=== PATIENT | female | born 2000 | race Caucasian/White ===

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

== ENCOUNTER 2020-11-01 13:40 | Emergency (ER) | payer SELFPAY ==
[~2020-11-01] VITALS: Ht 149.8 cm; Wt 43.1 kg
[~2020-11-01 13:40] MED LIST changes: +NORG1TAB14 PO
--- NOTE | 2020-11-01 14:07 | ED Lower Extremity ---
General Chief Complaint: Lower Extremity Stated Complaint: L FOOT INJ Nursing Triage Note: PT STATES SHE WAS RUNNING UP THE STAIRS AND FELT HER FOOT TWIST, STATES PAIN ON THE LEFT LATERAL SIDE OF HER FOOT. Nursing Sepsis Screen: No Definite Risk Source: patient Exam Limitations: no limitations History of Present Illness Date Seen by Provider: Nov 01, 2020 Time Seen by Provider: 14:06 Initial Comments To ER with pain over the fifth metatarsal head after she was running up her stairs just prior to arrival. Her foot slipped. No ankle pain. Onset: just prior to arrival Severity: moderate Pain/Injury Location: left foot Method of Injury: fell, twisted Modifying Factors: Worse With Movement Allergies and Home Medications Allergies Coded Allergies: NKANo Known Allergies (Verified Allergy, Unknown, 12/14/06) Home Medications Hydrocodone/Acetaminophen 1 Each Tablet, 1 TAB PO Q4H PRN for PAIN-MODERATE (5- 7) Prescribed by: FRANCESCO BAILON on 11/01/20 1429 Patient Home Medication List Home Medication List Reviewed: Yes Review of Systems Constitutional: see HPI EENTM: see HPI Respiratory: no symptoms reported Cardiovascular: no symptoms reported Genitourinary: no symptoms reported Musculoskeletal: see HPI Skin: no symptoms reported Psychiatric/Neurological: No Symptoms Reported Past Dahwmtj-Bahnya-Wiyram Hx Patient Social History Alcohol Use: Occasionally Uses Smoking Status: Former Smoker Type Used: Cigarettes Recent Infectious Disease Expo: No Recent Hopitalizations: No Immunizations Up To Date Tetanus Booster (TDap): Less than 5yrs PED Vaccines UTD: Yes Seasonal Allergies Seasonal Allergies: No Past Medical History Surgeries: Yes (tissue removal behind ear, wart removal from head) Respiratory: No Cardiac: No Neurological: No Reproductive Disorders: No Sexually Transmitted Disease: No Genitourinary: No Gastrointestinal: No Musculoskeletal: No Endocrine: No Cancer: No Psychosocial: Yes ADD/ADHD, Depression Integumentary: No Blood Disorders: No Family Medical History No Pertinent Family Hx Physical Exam Vital Signs Vital Signs - First Documented 11/01/20 14:01 Temp 36.7 Pulse 79 Resp 18 B/P (MAP) 120/68 (85) Pulse Ox 99 Capillary Refill : Less Than 3 Seconds Height, Weight, BMI Height: 4'11.00" Weight: 90lbs. oz. 40.392283uf; 19.00 BMI Method:Stated General Appearance: WD/WN, no apparent distress Respiratory: no respiratory distress, no accessory muscle use Hips: bilateral hip non-tender, bilateral hip normal inspection, bilateral hip normal range of motion Legs: bilateral leg non-tender, bilateral leg normal inspection, bilateral leg normal range of motion Knees: bilateral knee non-tender, bilateral knee normal inspection, bilateral knee normal range of motion Ankles: bilateral ankle non-tender, bilateral ankle normal inspection, nabil ateral ankle normal range of motion Feet: left foot other (There is some ecchymosis laterally over the proximal fifth metatarsal. Tenderness to palpation in this area. There is no overt swelling. The lateral malleolus and medial malleolus are normal in appearance and nontender to palpation.) Neurologic/Psychiatric: alert, normal mood/affect, oriented x 3 Skin: normal color, warm/dry Progress/Results/Core Measures Results/Orders My Orders Orders - FRANCESCO BAILON APRN Foot, Left, 3 Views (11/01/20 14:04) Hydrocodone/Apap 5/325 Tablet (Lortab 5 (11/01/20 14:45) Vital Signs/I&O 11/01/20 14:01 Temp 36.7 Pulse 79 Resp 18 B/P (MAP) 120/68 (85) Pulse Ox 99 Blood Pressure Mean: 85 Diagnostic Imaging Diagonstic Imaging: Xray Comments NAME: [facility] REC#: [id number] PT STATUS: REG ER : 2000 PHYSICIAN: FRANCESCO BAILON APRN ADMIT DATE: 11/01/20/ER Draft Date of Exam:11/01/20 FOOT, LEFT, 3 VIEWS EXAM: Left foot radiograph. EXAM DATE: 11/01/2020. COMPARISON: None. HISTORY: Injury to the left foot. TECHNIQUE: Three views of the left foot. FINDINGS: There is a linear radiolucency along the lateral aspect of the proximal left fifth metatarsal, best seen on the AP and oblique views. No significant displacement or angulation. There is no other acute fracture, dislocation, or destructive osseous process. Joint spaces are normal. The soft tissues demonstrate mild swelling in the midfoot. IMPRESSION: 1. Likely nondisplaced fracture of the proximal right fifth metatarsal. Dictated on workstation # [id number] Dict: 11/01/20 1427 Trans: 11/01/20 1436 [id number] Interpreted by: BJ WAHL DO Electronically signed by: Departure Communication (Admissions) Given a walking boot here. Follow up with ortho. Impression Primary Impression: Metatarsal fracture left foot Disposition: HOME, SELF-CARE Condition: Stable Departure-Patient Inst. Decision time for Depature: 14:27 Referrals: JEFRY GRACE MD, CHAD C MD (PCP/Family) Primary Care Physician DEMETRIA KUMAR MD Patient Instructions: Foot Fracture (DC) Add. Discharge Instructions: Walking boot when you are up and about. You can take it off when you are at rest or in bed. Call tomorrow for an appointment with an orthopedist for further evaluation. Pain medication as directed. All discharge instructions reviewed with patient and/or family. Voiced understanding. Scripts Hydrocodone/Acetaminophen (Hydrocodone-Acetamin 5-325 mg) 1 Each Tablet 1 TAB PO Q4H PRN for PAIN-MODERATE (5-7), #14 TAB Prov: FRANCESCO BAILON APRN 11/01/20 Work/School Note: Work Release Form Date Seen in the Emergency Department: Nov 01, 2020 Return to Work: Nov 03, 2020 Other Restrictions Listed Below: Walking boot until released. ALlow foot to be elevated for 30 minutes as Copy Copies To 1: LIBORIO QUINTANA MD, PETER J APRN Nov 01, 2020 14:07
[2020-11-01] MEDS ORDERED: ACHD5005 PO (14:29)
--- NOTE | 2020-11-01 14:36 | Diagnostic Imaging Report ---
EXAM: Left foot radiograph. EXAM DATE: 11/01/2020. COMPARISON: None. HISTORY: Injury to the left foot. TECHNIQUE: Three views of the left foot. FINDINGS: There is a linear radiolucency along the lateral aspect of the proximal left fifth metatarsal, best seen on the AP and oblique views. No significant displacement or angulation. There is no other acute fracture, dislocation, or destructive osseous process. Joint spaces are normal. The soft tissues demonstrate mild swelling in the midfoot. IMPRESSION: 1. Nondisplaced fracture of the proximal right fifth metatarsal. Dictated by: Dictated on workstation # [id number]
[2020-11-01] MEDS ORDERED: HYDROcodone/APAP 5 MG/325 MG (LORTAB) TAB PO ONE (14:45)
[2020-11-01 14:47] VITALS: BP 120/68
== END 2020-11-01 14:47 | disposition home or self-care (01) ==
LOC: EDUNIT# 13:40 → ER 13:41
DX: S92.354A Nondisplaced fracture of fifth metatarsal bone, right foot, initial encounter for closed fracture (principal); Z87.891 Personal history of nicotine dependence; W18.43XA Slipping, tripping and stumbling without falling due to stepping from one level to another, initial encounter
CPT/HCPCS: 73630

== ENCOUNTER 2021-11-18 07:05 | Emergency (ER) | payer SELFPAY ==
[~2021-11-18] VITALS: Ht 149.8 cm; Wt 43.0 kg
[~2021-11-18 07:05] MED LIST changes: +ACHD5005 PO
--- NOTE | 2021-11-18 07:52 | ED EENT ---
History of Present Illness General Chief Complaint: Foreign Body Stated Complaint: TISSUE IN R EAR Source: patient Exam Limitations: no limitations History of Present Illness Date Seen by Provider: Nov 18, 2021 Time Seen by Provider: 07:26 Initial Comments This 21-year-old young lady presents to the emergency room with tissue stuck in her right ear canal. She was staying the night in a hotel with her boyfriend last night. He was snoring loudly so she inserted tissue into her ears as earplugs. She is now unable to get the tissue out of her right ear. She is presently . Allergies and Home Medications Allergies Coded Allergies: NKANo Known Allergies (Verified Allergy, Unknown, 12/14/06) Patient Home Medication List Home Medication List Reviewed: Yes Hydrocodone/Acetaminophen (Hydrocodone-Acetamin 5-325 mg) 1 Each Tablet, 1 TAB PO Q4H PRN for PAIN-MODERATE (5-7) Prescribed by: FRANCESCO BAILON on 11/01/20 5004 Review of Systems Review of Systems Constitutional: no symptoms reported Ears: See HPI Past Qnxyoej-Czjjqc-Mvqoff Hx Patient Social History Tobacco Use?: No Smoking Status: Never a Smoker Use of E-Cig and/or Vaping dev: No Substance use?: No Alcohol Use?: No Pt feels they are or have been: No Immunizations Up To Date Tetanus Booster (TDap): Less than 5yrs PED Vaccines UTD: Yes Seasonal Allergies Seasonal Allergies: No Past Medical History Surgeries: Yes (tissue removal behind ear, wart removal from head) Respiratory: No Cardiac: No Neurological: No : Yes Reproductive Disorders: No Sexually Transmitted Disease: No Genitourinary: No Gastrointestinal: No Musculoskeletal: No Endocrine: No HEENT: No Cancer: No Psychosocial: Yes ADD/ADHD, Depression Integumentary: No Blood Disorders: No Family Medical History No Pertinent Family Hx Physical Exam Vital Signs Vital Signs - First Documented 11/18/21 11/18/21 07:15 07:55 Temp 35.6 Pulse 66 Resp 14 B/P (MAP) 98/61 (73) Pulse Ox 99 O2 Delivery Room Air Height, Weight, BMI Height: 4'11.00" Weight: 90lbs. oz. 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 Exam was normal after removal. See discharge instructions. Departure Impression Primary Impression: Foreign body in ear Qualified Codes: T16.1XXA - Foreign body in right ear, initial encounter Disposition: HOME, SELF-CARE Condition: Improved Departure-Patient Inst. Decision time for Depature: 07:40 Referrals: NO,LOCAL PHYSICIAN (PCP/Family) Primary Care Physician Patient Instructions: Foreign Body in Ear, Child Add. Discharge Instructions: Do not place any objects in the ear as earplugs except earplugs specifically designed for that purpose. In general, do not use any fibers product such as tissue that could disintegrate in any orifice such as the nose or ears. These products can disintegrate into many pieces and be very difficult to remove. Return to care if you have any problems with your ear. All discharge instructions reviewed with patient and/or family. Voiced understa nding. EVA MAYA MD Nov 18, 2021 07:52
[2021-11-18 07:55] VITALS: BP 98/61
== END 2021-11-18 07:55 | disposition home or self-care (01) ==
LOC: EDUNIT# 07:05 → ER 07:08
DX: O9A.219 Injury, poisoning and certain other consequences of external causes complicating pregnancy, unspecified trimester (principal); S00.451A Superficial foreign body of right ear, initial encounter; Z3A.00 Weeks of gestation of pregnancy not specified; W45.8XXA Other foreign body or object entering through skin, initial encounter
CPT/HCPCS: 99282

== ENCOUNTER → 2021-12-10 | Outpatient (CLI) | payer MEDICAID, OTHER ==
--- NOTE | 2021-12-10 16:08 | Diagnostic Imaging Report ---
INDICATION: Check dates. EXAMINATION: Ultrasound OB less than 14 weeks, 12/10/2021. FINDINGS: Uterus is 9.9 cm in length. There is a single live intrauterine gestation currently measuring 11 weeks 3 days with cardiac activity of approximately 155 bpm. Estimated date of delivery is 06/28/2022. The maternal ovaries not visualized. IMPRESSION: Single live intrauterine gestation 11 weeks 3 days by today's sonogram. Dictated by: Dictated on workstation # [id number]
== END ==
LOC: RAD 13:00
PROVIDERS: ATTEND Family Medicine
DX: Z34.91 Encounter for supervision of normal pregnancy, unspecified, first trimester (principal); Z3A.11 11 weeks gestation of pregnancy
CPT/HCPCS: 76801

== ENCOUNTER 2022-01-24 15:30 | Emergency (ER) | payer MEDICAID ==
[~2022-01-24] VITALS: Ht 150 cm; Wt 41.3 kg
[2022-01-24 16:20] VITALS: BP 117/55
--- NOTE | 2022-01-24 16:31 | ED Cough/URI ---
General Stated Complaint: SORE THROAT, CONGESTION, VOMITING Source: patient Exam Limitations: no limitations History of Present Illness Date Seen by Provider: Jan 24, 2022 Time Seen by Provider: 16:19 Initial Comments 21-year-old female who is 18 weeks presents for chills, body aches, sore throat headache and runny nose. She also has a cough. No real shortness of breath. No chest pain. No abdominal symptoms. No vaginal bleeding or leakage of fluids. Allergies and Home Medications Allergies Coded Allergies: NKANo Known Allergies (Verified Allergy, Unknown, 12/14/06) Patient Home Medication List Home Medication List Reviewed: Yes Hydrocodone/Acetaminophen (Hydrocodone-Acetamin 5-325 mg) 1 Each Tablet, 1 TAB PO Q4H PRN for PAIN-MODERATE (5-7) Prescribed by: FRANCESCO BAILON on 11/01/20 1429 Review of Systems Review of Systems Constitutional: chills EENTM: nose congestion, throat pain Respiratory: cough Cardiovascular: no symptoms reported Gastrointestinal: no symptoms reported Genitourinary: no symptoms reported Musculoskeletal: no symptoms reported Skin: no symptoms reported Psychiatric/Neurological: No Symptoms Reported Hematologic/Lymphatic: No Symptoms Reported Past Ibyxmmv-Bokpmb-Bxummf Hx Patient Social History Tobacco Use?: No Use of E-Cig and/or Vaping dev: No Substance use?: No Alcohol Use?: No Pt feels they are or have been: No Immunizations Up To Date Tetanus Booster (TDap): Less than 5yrs PED Vaccines UTD: Yes Seasonal Allergies Seasonal Allergies: No Past Medical History Surgeries: Yes (tissue removal behind ear, wart removal from head) Respiratory: No Cardiac: No Neurological: No Reproductive Disorders: No Sexually Transmitted Disease: No Genitourinary: No Gastrointestinal: No Musculoskeletal: No Endocrine: No HEENT: No Cancer: No Psychosocial: Yes ADD/ADHD, Depression Integumentary: No Blood Disorders: No Family Medical History Reviewed Nursing Family Hx No Pertinent Family Hx Physical Exam Vital Signs - First Documented 01/24/22 16:20 Temp 36.7 Pulse 88 Resp 16 B/P (MAP) 117/55 (75) Pulse Ox 99 O2 Delivery Room Air Capillary Refill : Height: 4'11.00" Weight: 90lbs. oz. 40.499262wo; 19.00 BMI Method:Stated General Appearance: WD/WN, no apparent distress HEENT: PERRL/EOMI, normal ENT inspection, TMs normal, pharynx normal Neck: non-tender, full range of motion, supple, normal inspection Respiratory: chest non-tender, lungs clear, normal breath sounds, no respiratory distress, no accessory muscle use Cardiovascular: regular rate, rhythm, no edema, no gallop, no JVD, no murmur Gastrointestinal: normal bowel sounds, non tender, soft, no organomegaly, no pulsatile mass Extremities: normal range of motion, non-tender, normal inspection, no pedal edema, no calf tenderness Neurologic/Psychiatric: alert, normal mood/affect, oriented x 3 Skin: normal color, warm/dry Progress/Results/Core Measures Suspected Sepsis SIRS Temperature: Pulse: Respiratory Rate: Blood Pressure / Mean: Results/Orders Lab Results Laboratory Tests Test 01/24/22 16:28 Range/Units SARS-CoV-2 RNA (RT-PCR) Not Detected Not Detecte Group A Streptococcus Screen NEGATIVE NEGATIVE Micro Results Microbiology 01/24/22 Throat Culture - Final, Complete No Beta Strep isolated My Orders Orders - LUIS A CHAVEZ DO Covid 19 Inhouse Test (01/24/22 16:28) Rapid Strep A Screen (01/24/22 16:28) Vital Signs/I&O 01/24/22 01/24/22 16:20 17:19 Temp 36.7 Pulse 88 82 Resp 16 18 B/P (MAP) 117/55 (75) Pulse Ox 99 100 O2 Delivery Room Air Room Air Capillary Refill : Departure Communication (Admissions) Patient is hemodynamically stable. No indication imaging related issues. Discharged in stable condition with close follow-up. The COVID test is negative, however I think this is likely still COVID, just tested too early. Impression Primary Impression: Viral illness Disposition: HOME, SELF-CARE Condition: Stable Departure-Patient Inst. Referrals: NO,LOCAL PHYSICIAN (PCP/Family) Primary Care Physician Patient Instructions: COVID-19 Home Care/Discharge Add. Discharge Instructions: Increase your fluids, rest. Use Tylenol as needed for body aches fevers. Return to the emergency department for any severe concerns. LUIS A CHAVEZ DO Jan 24, 2022 16:31
== END 2022-01-24 17:19 | disposition home or self-care (01) ==
LOC: EDUNIT# 15:30 → ER 15:32
DX: O98.512 Other viral diseases complicating pregnancy, second trimester (principal); B34.9 Viral infection, unspecified; Z28.310 Unvaccinated for COVID-19; Z20.822 Contact with and (suspected) exposure to COVID-19; Z3A.18 18 weeks gestation of pregnancy
CPT/HCPCS: 87430; 87636; 99283

== ENCOUNTER 2022-01-25 14:55 | Emergency (ER) | payer MEDICAID ==
[~2022-01-25] VITALS: Ht 149 cm; Wt 41.2 kg
[2022-01-25] MEDS ORDERED: NS IV 1000 ML 1,000 ML IV STA (15:41)
[2022-01-25] MEDS ORDERED: ONDANSETRON 4 MG/2 ML (SDV) Z0FRAN IVP ONE (15:45)
--- NOTE | 2022-01-25 15:50 | ED Abdominal Pain ---
General Chief Complaint: Abdominal/GI Problems Stated Complaint: VOMITING Nursing Triage Note: Pt presents with persistent N/V. She was evaluated yesterday in this ER for similar symptoms. She reports being approx 4 mo . Unable to keep broth down this morning. Has been taking a prescribed nausea medication, can not remember the name. (LUCY SNEED APRN) History of Present Illness Date Seen by Provider: Jan 25, 2022 Time Seen by Provider: 15:40 Initial Comments Patient states that she was seen here yesterday for similar symptoms and was told to come back here if symptoms got worse. States that today she has been unable to keep anything down. Denies fever or recent sick contacts. Was tested for COVID yesterday and negative at that time. Is currently 4 months . 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 Denies diarrhea. Has not vomited since this morning. Timing/Duration: 1-2 Days Severity/Quality: Moderate Location: Generalized Abdomen Radiation: No Radiation Activities at Onset: None Modifying Factors: Worsens With Eating, Worsens With Lying down, Worsens With Movement; Improves With Resting; Worsens With Urinating; Improves With Vomiting Associated Symptoms: No Diaphoresis, No Fever/Chills; Fatigue, Nausea/Vomiting; No Weakness (LUCY SNEED APRN) Allergies and Home Medications Allergies Coded Allergies: NKANo Known Allergies (Verified Allergy, Unknown, 12/14/06) Patient Home Medication List Home Medication List Reviewed: Yes (LUCY SNEED APRN) Hydrocodone/Acetaminophen (Hydrocodone-Acetamin 5-325 mg) 1 Each Tablet, 1 TAB PO Q4H PRN for PAIN-MODERATE (5-7) Prescribed by: FRANCESCO BAILON on 11/01/20 1429 Review of Systems Review of Systems Constitutional: see HPI; No chills, No dizziness, No fever; malaise; No weakness EENTM: No Symptoms Reported Respiratory: Denies Cough, Denies Shortness of Air Cardiovascular: Denies Chest Pain, Denies Irregular Heart Rate, Denies Li ghtheadedness Gastrointestinal: Abdominal Pain; Denies Diarrhea; Nausea, Poor Appetite, Vomiting Genitourinary: Denies Burning, Denies Frequency Musculoskeletal: No back pain, No joint swelling Skin: No pruritus, No rash (LUCY SNEED APRN) All Other Systems Reviewed Negative Unless Noted: Yes (LUCY SNEED APRN) Past Fibkadk-Kwolie-Qkxnzi Hx Patient Social History Tobacco Use?: No Substance use?: No Alcohol Use?: No (LUCY SNEED APRN) Immunizations Up To Date Tetanus Booster (TDap): Less than 5yrs PED Vaccines UTD: Yes (LUCY SNEED APRN) Seasonal Allergies Seasonal Allergies: No (LUCY SNEED APRN) Past Medical History Surgeries: Yes (tissue removal behind ear, wart removal from head) Respiratory: No Cardiac: No Neurological: No Expected Date of Delivery: Jun 28, 2022 Reproductive Disorders: No Sexually Transmitted Disease: No Genitourinary: No Gastrointestinal: No Musculoskeletal: No Endocrine: No HEENT: No Cancer: No Psychosocial: Yes ADD/ADHD, Depression Integumentary: No Blood Disorders: No (LUCY SNEED APRN) Family Medical History Reviewed Nursing Family Hx (LUCY SNEED APRN) No Pertinent Family Hx (LUCY SNEED APRN) Physical Exam Vital Signs Vital Signs - First Documented 01/25/22 15:26 Temp 36.9 Pulse 91 Resp 18 B/P (MAP) 96/62 (73) (MARIANN LUNA APRN) Vital Signs Capillary Refill : (LUCY SNEED APRN) Height/Weight/BMI Height: 4'11.00" Weight: 90lbs. oz. 40.352958vj; 18.00 BMI Method:Stated General Appearance: WD/WN, no apparent distress HEENT: PERRL/EOMI, pharynx normal; No scleral icterus (L), No pale conjunctivae (R), No pale conjunctivae (L) Neck: non-tender, full range of motion, supple, normal inspection Respiratory: lungs clear, normal breath sounds, no respiratory distress Cardiovascular: regular rate, rhythm, no edema Gastrointestinal: normal bowel sounds, non tender, soft Extremities: normal range of motion, non-tender Back: normal inspection, no CVA tenderness Neurologic/Psychiatric: alert, normal mood/affect, oriented x 3 Skin: normal color, warm/dry Lymphatic: no adenopathy (LUCY SNEED APRN) Progress/Results/Core Measures Results/Orders Lab Results Laboratory Tests Test 01/25/22 15:21 01/25/22 16:07 Range/Units Influenza Type A (RT-PCR) Not Detected Not Detecte Influenza Type B (RT-PCR) Not Detected Not Detecte White Blood Count 8.9 4.3-11.0 10^3/uL Red Blood Count 3.40 L 3.80-5.11 10^6/uL Hemoglobin 10.9 L 11.5-16.0 g/dL Hematocrit 32 L 35-52 % Mean Corpuscular Volume 93 80-99 fL Mean Corpuscular Hemoglobin 32 25-34 pg Mean Corpuscular Hemoglobin Concent 35 32-36 g/dL Red Cell Distribution Width 11.9 10.0-14.5 % Platelet Count 191 130-400 10^3/uL Mean Platelet Volume 9.1 9.0-12.2 fL Immature Granulocyte % (Auto) 1 % Neutrophils (%) (Auto) 87 H 42-75 % Lymphocytes (%) (Auto) 6 L 12-44 % Monocytes (%) (Auto) 5 0-12 % Eosinophils (%) (Auto) 0 0-10 % Basophils (%) (Auto) 0 0-10 % Neutrophils # (Auto) 7.8 1.8-7.8 10^3/uL Lymphocytes # (Auto) 0.6 L 1.0-4.0 10^3/uL Monocytes # (Auto) 0.5 0.0-1.0 10^3/uL Eosinophils # (Auto) 0.0 0.0-0.3 10^3/uL Basophils # (Auto) 0.0 0.0-0.1 10^3/uL Immature Granulocyte # (Auto) 0.1 0.0-0.1 10^3/uL Neutrophils % (Manual) 87 % Lymphocytes % (Manual) 6 % Monocytes % (Manual) 6 % Eosinophils % (Manual) 1 % Blood Morphology Comment NORMAL Sodium Level 134 L 135-145 MMOL/L Potassium Level 3.8 3.6-5.0 MMOL/L Chloride Level 107 98-107 MMOL/L Carbon Dioxide Level 16 L 21-32 MMOL/L Anion Gap 11 5-14 MMOL/L Blood Urea Nitrogen 6 L 7-18 MG/DL Creatinine 0.55 L 0.60-1.30 MG/DL Estimat Glomerular Filtration Rate 134 BUN/Creatinine Ratio 11 Glucose Level 64 L 70-105 MG/DL Calcium Level 9.0 8.5-10.1 MG/DL Corrected Calcium 9.0 8.5-10.1 MG/DL Total Bilirubin 0.3 0.1-1.0 MG/DL Aspartate Amino Transf (AST/SGOT) 35 H 5-34 U/L Alanine Aminotransferase (ALT/SGPT) 29 0-55 U/L Alkaline Phosphatase 43 40-136 U/L Total Protein 6.8 6.4-8.2 GM/DL Albumin 4.0 3.2-4.5 GM/DL Lipase 16 8-78 U/L (MARIANN LUNA APRN) My Orders Orders - MARIANN LUNA APRN Influenza A And B By Pcr (01/25/22 15:00) (MARIANN LUNA APRN) Medications Given in ED Current Medications Medications Dose Ordered Sig/Heeln Route Start Time Stop Time Status Last Admin Dose Admin Ondansetron HCl 4 mg ONCE ONCE IVP 01/25/22 15:45 01/25/22 15:46 DC 01/25/22 16:08 4 MG (MARIANN LUNA APRN) Vital Signs/I&O 01/25/22 15:26 Temp 36.9 Pulse 91 Resp 18 B/P (MAP) 96/62 (73) (MARIANN LUNA APRN) Blood Pressure Mean: 73 Progress Progress Note #1: Progress Note Discussed with patient that she will have influenza testing done. Will go ahead and check some basic labs along with giving liter of saline for hydration. Will also treat with nausea medications. FHTs will be done. Progress Note #2: Time: 15:57 Progress Note Influenza testing is negative at this time. Fluids and additional labs are pending at this time. Progress Note #3: Time: 16:50 Progress Note Discussed labs with patient at this time. She reports that she is feeling a lot better at this time and reports that she is hungry. Has nausea medication at home. Has an appointment already scheduled with OB in two days. Discussed reasons to return to the ER with patient. No emesis was appreciated while she was here in the department. Symptoms likely viral in origin or related. Of note, AST was barely elevated at 35. History of Tylenol overdose in the past with liver enzymes in the 8000s per patient report. C02 was low in addition but was likely improved with normal saline. She was not tachycardic while she was here in the department. Instructed to keep appointment with OB as already scheduled. (LUCY NSEED APRN) Departure Impression Primary Impression: Nausea and vomiting Qualified Codes: R11.2 - Nausea with vomiting, unspecified Additional Impression: Qualified Codes: Z34.90 - Encounter for supervision of normal , unspecified, unspecified trimester Disposition: HOME, SELF-CARE Condition: Stable Departure-Patient Inst. Decision time for Depature: 16:57 (LUCY SNEED APRN) Decision time for Depature: 17:16 (MARIANN LUNA APRN) Referrals: NO,LOCAL PHYSICIAN (PCP/Family) Primary Care Physician Patient Instructions: Nausea and Vomiting, Adult, - The Fourth Month Add. Discharge Instructions: All discharge instructions reviewed with patient and/or family. Voiced understanding. 1. Home and rest. 2. Push fluids. 3. Tylenol as needed for pain. 4. Follow up with PCP as needed. 5. Follow up with OB as already scheduled this week. 6. Toole diet and advance as tolerated. 7. Return here if worse or concerns. Work/School Note: Work Release Form Date Seen in the Emergency Department: Jan 25, 2022 Other Restrictions Listed Below: Was seen in ER on 01/24/22 and 01/25/22 for GI illness. LUCY SNEED APRN Jan 25, 2022 15:50 MARIANN LUNA APRN Jan 25, 2022 17:17
[2022-01-25 16:16] LABS: BASOPHILS % (AUTO) 0 % (0-10); EOSINOPHILS % (AUTO) 0 % (0-10); HEMATOCRIT 32 % (35-52); HEMOGLOBIN 10.9 g/dL (11.5-16.0); LYMPHOCYTES # (AUTO) 0.6 10^3/uL (1.0-4.0); LYMPHOCYTES % (AUTO) 6 % (12-44); MEAN CORPUSCULAR HEMOGLOBIN 32 pg (25-34); MEAN CORPUSCULAR HGB CONC 35 g/dL (32-36); MEAN CORPUSCULAR VOLUME 93 fL (80-99); MEAN PLATELET VOLUME 9.1 fL (9.0-12.2); MONOCYTES # (AUTO) 0.5 10^3/uL (0.0-1.0); MONOCYTES % (AUTO) 5 % (0-12); NEUTROPHILS # (AUTO) 7.8 10^3/uL (1.8-7.8); NEUTROPHILS % (AUTO) 87 % (42-75); PLATELET COUNT 191 10^3/uL (130-400); WHITE BLOOD COUNT 8.9 10^3/uL (4.3-11.0)
[2022-01-25 16:32] LABS: EOSINOPHILS % (MANUAL) 1 %; LYMPHOCYTES % (MANUAL) 6 %; MONOCYTES % (MANUAL) 6 %; NEUTROPHILS % (MANUAL) 87 %; RBC MORPH NORMAL
[2022-01-25 16:36] LABS: POTASSIUM 3.8 MMOL/L (3.6-5.0)
[2022-01-25 16:39] LABS: TOTAL PROTEIN 6.8 GM/DL (6.4-8.2)
[2022-01-25 16:40] LABS: BILIRUBIN,TOTAL 0.3 MG/DL (0.1-1.0)
[2022-01-25 16:42] LABS: CREATININE SERUM 0.55 MG/DL (0.60-1.30)
[2022-01-25 17:00] VITALS: BP 94/52
== END 2022-01-25 17:10 | disposition home or self-care (01) ==
LOC: EDUNIT# 14:55 → ER 14:57
DX: O21.9 Vomiting of pregnancy, unspecified (principal); Z28.310 Unvaccinated for COVID-19; Z3A.00 Weeks of gestation of pregnancy not specified
CPT/HCPCS: 36415; 80053; 81002; 83690; 85007; 85027; 87636

== ENCOUNTER → 2022-02-14 | Outpatient (CLI) | payer MEDICAID ==
--- NOTE | 2022-02-14 17:54 | Diagnostic Imaging Report ---
INDICATION: Routine anatomic survey. . TECHNIQUE: Multiple real-time grayscale images were obtained over the gravid uterus. COMPARISON: None Number: Single live Presentation: Cephalic Placenta: Posterior and low lying Amniotic Fluid: TAMIKA is 11.6 cm. Single largest vertical pocket is 3.4 cm. Heart Rate: 142 bpm BPD: 4.7 cm; consistent with 20 weeks and 2 days HC: 18.4 cm; consistent with 20 weeks and 6 days AC: 16.6 cm; consistent with 21 weeks and 5 days FL: 3.4 cm; consistent with 20 weeks and 5 days EGA from current exam: 21 weeks and 0 days gestation plus or minus 2 weeks LOUISA from current exam: 06/27/2022 CLINICAL DATES: Gestational age 20 weeks and 6 days, LOUISA 06/28/2022 EFW: 399 g +/- 58 grams (14 ounces); this is consistent with the 58th percentile FINDINGS: The anatomic survey is grossly unremarkable. The stomach, four-chamber heart, kidneys, bladder, three-vessel cord and the cord insertion are well seen. The spine and intracranial structures are grossly unremarkable. Maternal adnexa are unremarkable. Maternal ovaries are not well visualized due to position IMPRESSION: Single live intrauterine at approximately 21 weeks and 0 days, with an LOUISA of 06/27/2022. These are concordant with clinical dates. No gross abnormalities are seen at this time. Dictated by: Dictated on workstation # [id number]
== END ==
LOC: RAD 14:00
PROVIDERS: ATTEND Family Medicine
DX: Z36.9 Encounter for antenatal screening, unspecified (principal); Z3A.21 21 weeks gestation of pregnancy
CPT/HCPCS: 76805

== ENCOUNTER 2022-04-18 10:00 | Outpatient (CLI) | payer MEDICAID ==
[~2022-04-18] VITALS: Ht 149.9 cm; Wt 48.0 kg
[2022-04-18 10:30] VITALS: BP 118/56
== END 2022-04-18 11:24 ==
LOC: LAB 10:00
PROVIDERS: ATTEND Family Medicine
DX: Z67.91 Unspecified blood type, Rh negative (principal)

== ENCOUNTER 2022-06-21 18:11 | Inpatient (IN) | payer MEDICAID ==
[~2022-06-21] VITALS: Ht 152 cm; Wt 51.8 kg
[2022-06-21] VITALS (8 sets, daily range): BP systolic 122–135; BP diastolic 68–99
[2022-06-21] MEDS ORDERED: D5 LR IV SOLUTION 1,000 ML IV ONE (22:23)
[2022-06-21] MEDS: D5 LR IV SOLUTION 1,000 ML IV SCH (22:30)
[2022-06-21] MEDS ORDERED: MINERAL OIL 30 ML UDC TOP PRN (22:45)
[2022-06-21 22:49] LABS: BASOPHILS % (AUTO) 0 % (0-10); EOSINOPHILS # (AUTO) 0.1 10^3/uL (0.0-0.3); EOSINOPHILS % (AUTO) 1 % (0-10); HEMATOCRIT 37 % (35-52); HEMOGLOBIN 12.8 g/dL (11.5-16.0); LYMPHOCYTES % (AUTO) 15 % (12-44); MEAN CORPUSCULAR HEMOGLOBIN 32 pg (25-34); MEAN CORPUSCULAR HGB CONC 34 g/dL (32-36); MEAN CORPUSCULAR VOLUME 93 fL (80-99); MEAN PLATELET VOLUME 10.3 fL (9.0-12.2); MONOCYTES # (AUTO) 0.8 10^3/uL (0.0-1.0); MONOCYTES % (AUTO) 6 % (0-12); NEUTROPHILS # (AUTO) 10.4 10^3/uL (1.8-7.8); NEUTROPHILS % (AUTO) 77 % (42-75); PLATELET COUNT 268 10^3/uL (130-400); WHITE BLOOD COUNT 13.5 10^3/uL (4.3-11.0)
[2022-06-21] MEDS ORDERED: fentaNYL 2 mcg/ml BUPIVA 0.125 100 ML ONE (23:07)
[2022-06-21] MEDS ORDERED: fentaNYL INJ 100 MCG/2 ML AMP ONE ×2 (23:13→23:42)
[2022-06-21] MEDS ORDERED: BUPIVACAINE 0.25% 10 ML (SENSORCAINE) VIAL ONE ×2 (23:13→23:42)
[2022-06-22] VITALS (33 sets, daily range): BP systolic 103–160; BP diastolic 55–80
[2022-06-22] MEDS ORDERED: LACTATED RINGERS 1,000 ML IV ONE (00:15)
[2022-06-22] MEDS ORDERED: diphenhydrAMINE 50 MG/ML INJ (BENADRYL) IV PRN (00:15)
[2022-06-22] MEDS ORDERED: NALOXONE 0.4 MG/ML 1 ML (NARCAN) VIAL IV PRN ×2 (00:15→09:45)
[2022-06-22] MEDS ORDERED: CATHETER FLUSH 10 ML SYR IV PRN (00:15)
[2022-06-22] MEDS ORDERED: fentaNYL 2 mcg/ml BUPIVA 0.125 100 ML EPI SCH (00:15)
[2022-06-22] MEDS ORDERED: ONDANSETRON 4 MG/2 ML (SDV) Z0FRAN IV PRN (00:15)
[2022-06-22] MEDS: D5 LR IV SOLUTION 1,000 ML IV SCH (05:38)
[2022-06-22] MEDS ORDERED: CATHETER FLUSH 10 ML SYR IV SCH ×2 (06:00→14:00)
--- NOTE | 2022-06-22 07:28 | History & Physical-OB ---
OB - Chief Complaint & HPI Date/Time Date of Admission: Date of Admission: Jun 21, 2022 at 22:19 Date seen by a Provider: Jun 21, 2022 Time Seen by a Provider: 20:50 Chief Complaint/History OB-Reason for Admission/Chief: Onset of Labor Hx : 1 Hx Para: 0 Expected Date of Delivery: Jun 28, 2022 Gestational Age in Weeks: 39 Gestational Age in Days: 0 Admission Nurse Assessment Rev: Yes History of Labs GBS negative Allergies and Home Medications Allergies Coded Allergies: NKANo Known Allergies (Verified Allergy, Unknown, 12/14/06) Patient Home Medication List Home Medication List Reviewed: Yes Docusate Sodium (Docusate Sodium) 100 Mg Capsule, 100 MG PO BID Prescribed by: JAMIL BROWN on 06/23/22720 Hydrocodone/Acetaminophen (Hydrocodone-Acetamin 5-325 mg) 1 Each Tablet, 1 TAB PO Q4H PRN for PAIN-MODERATE (5-7) Prescribed by: FRANCESCO BAILON on 11/01/20 142 Ibuprofen (Ibu) 600 Mg Tablet, 600 MG PO Q6H Prescribed by: JAMIL BROWN on 06/23/22720 OB - History Hx of Present Care: Yes Ultrasounds: Normal mid trimester US Obstetrical Complications: None Medical Complications: None Obstetrical History Hx : 1 Hx Para: 0 Delivery History Hx Blood Disorders: No Patient Past Medical History no chronic medical problems Social History/Family History Alcohol Use: Denies Use Recreational Drug Use: No 2nd Hand Smoke Exposure: Yes Immunizations Influenza Vaccine Up-to-Date: No; Not Current Tetanus Booster (TDap): Less than 5yrs OB - Admission Exam Physical Exam Vitals: Vital Signs 06/22/22 05:30 Temp 37.0 Pulse 70 Resp 16 B/P (MAP) 107/72 (84) Pulse Ox 99 O2 Delivery Room Air HEENT: Moist Membranes Heart: Rhythm Normal Lungs: Clear Abdomen: Gravid Cervical Dilatation: 3cm Effacement: 75% Station: -3 Membranes: Intact Accelerations: Accelerations Present Short Term Variability: Present Pattern Changer And Repairer Variability: Average (6-25) Contractions on Admission: 6-10 Minutes Apart Intensity: Mild Labs Laboratory Tests Test 06/21/22 22:30 Range/Units White Blood Count 13.5 H 4.3-11.0 10^3/uL Red Blood Count 4.02 3.80-5.11 10^6/uL Hemoglobin 12.8 11.5-16.0 g/dL Hematocrit 37 35-52 % Mean Corpuscular Volume 93 80-99 fL Mean Corpuscular Hemoglobin 32 25-34 pg Mean Corpuscular Hemoglobin Concent 34 32-36 g/dL Red Cell Distribution Width 12.6 10.0-14.5 % Platelet Count 268 130-400 10^3/uL Mean Platelet Volume 10.3 9.0-12.2 fL Immature Granulocyte % (Auto) 1 % Neutrophils (%) (Auto) 77 H 42-75 % Lymphocytes (%) (Auto) 15 12-44 % Monocytes (%) (Auto) 6 0-12 % Eosinophils (%) (Auto) 1 0-10 % Basophils (%) (Auto) 0 0-10 % Neutrophils # (Auto) 10.4 H 1.8-7.8 10^3/uL Lymphocytes # (Auto) 2.0 1.0-4.0 10^3/uL Monocytes # (Auto) 0.8 0.0-1.0 10^3/uL Eosinophils # (Auto) 0.1 0.0-0.3 10^3/uL Basophils # (Auto) 0.0 0.0-0.1 10^3/uL Immature Granulocyte # (Auto) 0.2 H 0.0-0.1 10^3/uL OB - Assessment/Plan/Diagnosis Assessment Assessment: active labor (early on presentation) Admission Dx 1. IUP at term 39 weeks in early labor Admission Status: Inpatient Order (span 2 midnights) Reason for Inpatient Admission: L&D Plan Plan: Expectant Management Other Plan -patient desires epidural JAMIL BROWN MD Jun 22, 2022 07:28
[2022-06-22] MEDS ORDERED: MEPIVACAINE (CARBOCAINE) 2% 50 ML VIAL ONE (07:32)
[2022-06-22] MEDS ORDERED: MEPIVACAINE (CARBOCAINE) 2% 50 ML VIAL INJ ONE (08:00)
[2022-06-22] MEDS ORDERED: OXYTOCIN PRE-MIX DRIP 500 ML IV ONE (08:35)
--- NOTE | 2022-06-22 09:31 | OB Labor & Delivery Record ---
L&D History Date of Service Date of Service: Jun 22, 2022 History Expected Date of Delivery: Jun 28, 2022 Gestational Age in Weeks: 39 Hx : 1 Hx Para: 1 Complications Events: Routine care Operative Indications (Cesarea: N/A-Vaginal Delivery Intrapartal Events: None Other Complications GBS negative L&D Stage1 Stage One Onset of Labor - Date: Jun 21, 2022 Onset of Labor - Time: 22:10 Monitors and Tracing Monitor Mode: External Heart Rate: 130 Monitor Accelerations: Uniform Monitor Decelerations: None Station: -2 Mcc Variability: Average (6-10) Short Term Variability: Present Presentation: Vertex Vital Signs VS - Last 72 Hours, by Label 06/21/22 06/21/22 06/21/22 06/21/22 19:59 20:00 20:05 20:30 Temp 36.1 36.1 36.1 Pulse 80 75 80 72 Resp 18 18 18 B/P (MAP) 125/77 125/77 (93) Pulse Ox 98 100 98 99 O2 Delivery Room Air Room Air Room Air Room Air 06/21/22 06/21/22 06/21/22 06/21/22 21:00 21:30 22:00 22:30 Temp 36.5 Pulse 70 Resp 18 B/P (MAP) 135/82 (99) O2 Delivery Room Air Room Air Room Air Room Air 06/21/22 06/21/22 06/21/22 06/21/22 23:00 23:15 23:30 23:45 Pulse 80 72 86 B/P (MAP) 129/80 (96) 132/99 (110) Pulse Ox 96 100 98 O2 Delivery Room Air Room Air Room Air Room Air 06/21/22 06/21/22 06/22/22 06/22/22 23:54 23:56 00:00 00:04 Temp 36.5 Pulse 76 76 66 71 B/P (MAP) 122/68 (86) 129/73 (91) 122/60 (80) 124/74 (91) Pulse Ox 98 98 100 97 O2 Delivery Room Air Room Air Room Air 06/22/22 06/22/22 06/22/22 06/22/22 00:08 00:15 00:18 00:23 Pulse 77 90 72 100 B/P (MAP) 128/71 (90) 118/66 (83) 126/75 (92) 131/78 (95) Pulse Ox 98 98 99 100 O2 Delivery Room Air 06/22/22 06/22/22 06/22/22 06/22/22 00:30 00:35 00:38 00:45 Pulse 80 84 80 95 B/P (MAP) 124/77 (93) 119/75 (90) 121/73 (89) 127/62 (83) Pulse Ox 100 98 97 99 O2 Delivery Room Air Room Air 06/22/22 06/22/22 06/22/22 06/22/22 00:50 00:54 01:00 01:15 Temp 36.6 Pulse 82 83 84 77 Resp 16 16 B/P (MAP) 115/62 (79) 115/59 (77) 110/55 (73) 137/75 (95) Pulse Ox 99 99 98 98 O2 Delivery Room Air Room Air 06/22/22 06/22/22 06/22/22 06/22/22 01:30 02:00 02:30 03:30 Temp 36.8 Pulse 75 82 76 81 Resp 16 16 16 16 B/P (MAP) 123/57 (79) 116/70 (85) 118/78 (91) 123/80 (94) Pulse Ox 97 99 98 98 O2 Delivery Room Air Room Air Room Air Room Air 06/22/22 06/22/22 04:30 05:30 Temp 37.0 Pulse 88 70 Resp 16 16 B/P (MAP) 114/65 (81) 107/72 (84) Pulse Ox 98 99 O2 Delivery Room Air Room Air Signs of Distress by FHT Signs of Distress no Rupture of Membranes Spontaneous Ruture of Membrane: Yes Amniotic Membrane Rupture Time: 2210 Amniotic Membrane Fluid Desc.: Clear Vaginal Bleeding Description: None Induction/Anesthesia Epidural Cath Placement - Time: 2353 L&D Stage2 Stage Two Stage II Date: Jun 22, 2022 Stage II Time: 08:28 Monitors and Tracing Monitor Mode: External Heart Rate: 130 Monitor Accelerations: Uniform Monitor Decelerations: Early Microbiology Lab Manager Variability: Average (6-10) Short Term Variability: Present Position: Left Occiput Anterior Signs of Distress by FHT Signs of Distress no Cord Descript/Complications Cord Vessel Description: 3 Vessels Delivery Type Delivery Method: Spontaneous Vaginal Anterior Shoulder: Left Episiotomy/Perineal Laceration Laceraction(s)/Extensions: Yes Episiotomy Description: Midline Sutures Used: Vicryl Condition of Infant Delivery 1 minute Comment: 8 5 minute Comment: 9 Condition of Infant Condition of : Living Exam: No Observed Abnormalities Resuscitation Resuscitation: N/A - Spontaneous Resp L&D Stage3 Stage Three Stage III Date: Jun 22, 2022 Pictocin Pitocin ml/hr: 125 Placenta Delivery Placenta Delivery: Spontaneous Delivery Summary Summary Estimated blood loss (mL): 200 Condition of Delivery Examined: Cervix Examined Post Hemorrhage: No Intervention Required none JAMIL BROWN MD Jun 22, 2022 09:31
[2022-06-22] MEDS ORDERED: BENZOCAINE/MENTHOL (DERMOPLAST) 56 ML CAN TP PRN (09:45)
[2022-06-22] MEDS ORDERED: TETANUS,DIPTH,PERTUSS P/F (BOOSTRIX) 0.5 ML VIAL IM ONE (09:45)
[2022-06-22] MEDS ORDERED: MEASLES,MUMPS,RUBELLA 1 EA INJ SQ ONE (09:45)
[2022-06-22] MEDS ORDERED: OXYTOCIN PRE-MIX DRIP 500 ML IV SCH (09:45)
[2022-06-22] MEDS: WITCH HAZEL(TUCKS) 40 EA JAR TOP PRN (10:07)
[2022-06-22] MEDS: ACETAMINOPHEN 500 MG TAB (TYLENOL) PO SCH ×2 (11:17→18:25)
[2022-06-22] MEDS: IBUPROFEN 600 MG (MOTRIN) TAB PO SCH ×2 (11:17→18:25)
[2022-06-22] MEDS: DOCUSATE SODIUM 100 MG (COLACE) CAP PO SCH (21:29)
[2022-06-23 00:34] VITALS: BP 114/53
[2022-06-23] MEDS: IBUPROFEN 600 MG (MOTRIN) TAB PO SCH ×4 (00:34→12:13)
[2022-06-23] MEDS: ACETAMINOPHEN 500 MG TAB (TYLENOL) PO SCH ×3 (00:34→12:13)
[2022-06-23 03:50] VITALS: BP 107/62
[2022-06-23 07:06] LABS: BASOPHILS # (AUTO) 0.1 10^3/uL (0.0-0.1); BASOPHILS % (AUTO) 0 % (0-10); EOSINOPHILS # (AUTO) 0.2 10^3/uL (0.0-0.3); EOSINOPHILS % (AUTO) 2 % (0-10); HEMATOCRIT 31 % (35-52); HEMOGLOBIN 10.4 g/dL (11.5-16.0); LYMPHOCYTES # (AUTO) 2.6 10^3/uL (1.0-4.0); LYMPHOCYTES % (AUTO) 17 % (12-44); MEAN CORPUSCULAR HEMOGLOBIN 32 pg (25-34); MEAN CORPUSCULAR HGB CONC 34 g/dL (32-36); MEAN CORPUSCULAR VOLUME 94 fL (80-99); MEAN PLATELET VOLUME 10.5 fL (9.0-12.2); MONOCYTES # (AUTO) 0.9 10^3/uL (0.0-1.0); MONOCYTES % (AUTO) 6 % (0-12); NEUTROPHILS # (AUTO) 11.4 10^3/uL (1.8-7.8); NEUTROPHILS % (AUTO) 75 % (42-75); PLATELET COUNT 208 10^3/uL (130-400); WHITE BLOOD COUNT 15.3 10^3/uL (4.3-11.0)
[2022-06-23] MEDS ORDERED: IBUP-844 PO (07:21)
[2022-06-23] MEDS ORDERED: DOCU100C37 PO (07:21)
--- NOTE | 2022-06-23 07:22 | Discharge Inst-Women's Service ---
Discharge Inst-Women's Serv Depart Medication/Instructions New, Converted or Re-Newed RX: Transmitted to Pharmacy ([facility]) Problems Reviewed?: Yes Consults/Follow Up Additional Follow Up: Yes (Dr Brown in 6 weeks) Activity Driving Instructions: No Driving for 1 Week Nothing Inside Vagina: No [place] (for 6 weeks) Diet Discharge Diet: Regular Diet Return to The Hospital For: as below Symptoms to Report to : Swelling Increased, Bleeding Excessive, Fever Over 101 Degrees F, Vaginal Discharge Foul For Any Problems or Questions: Contact Your Physician JAMIL BROWN MD Jun 23, 2022 07:22
--- NOTE | 2022-06-23 07:27 | Discharge Summary ---
Diagnosis/Chief Complaint Date of Admission Jun 21, 2022 at 22:19 Date of Discharge Discharge Date: Jun 23, 2022 Admission Diagnosis Admission Diagnosis 1. Intrauterine at 39 weeks gestation Discharge Diagnosis 1. Intrauterine at 39 weeks gestation 2. Mild anemia Reason Hospital Visit 22-year-old 1 now term 1 L1 initially presented to labor and delivery during the evening of June 21 for labor. She was noted to be having contractions and dilated to 3 cm at the time. She had a negative GBS status at 36 weeks Discharge Summary-OBS Procedures 1. Epidural per anesthesia 2. Spontaneous vaginal delivery 3. Repair of midline episiotomy Discharge Physical Examination Allergies: Coded Allergies: NKANo Known Allergies (Verified Allergy, Unknown, 12/14/06) Vitals & I&Os Vital Signs Date Time Temp Pulse Resp B/P (MAP) Pulse Ox O2 Delivery O2 Flow Rate FiO2 06/23/22 03:50 36.0 67 18 107/62 (77) 96 Room Air General Appearance: No Acute Distress Respiratory: Clear to Auscultation Cardiovascular: Regular Rate Abdominal: Soft (with uterus firm) Hospital Course Was the Problem List Reviewed?: Yes following admission on June 21 she underwent antepartum care orders. She was noted to contract on her own. Eventually in the morning of June 22 she went on the completion and delivered a term viable male with Apgars of 8 at 1 minute and 9 at 5 minutes. See labor and delivery note for full details. following delivery she underwent routine care orders. She had no complications during the remainder of hospital stay. She was ambulatory and had noComplaints of shortness of breath, chest pain or leg pain. Her hemoglobin in the morning of June 23 was 10.4 compared to admission of 12.8. She had voided urine during the course of her stay but no bowel movement. She was kept on Colace just to keep her stools soft. Prescription medications were called in to her local pharmacy. She will follow-up with myself in 6 weeks. Pending Labs Laboratory Tests 06/23/22 06:03: White Blood Count 15.3, Red Blood Count 3.23, Hemoglobin 10.4, Hematocrit 31, Mean Corpuscular Volume 94, Mean Corpuscular Hemoglobin 32, Mean Corpuscular Hemoglobin Concent 34, Red Cell Distribution Width 12.6, Platelet Count 208, Mean Platelet Volume 10.5, Immature Granulocyte % (Auto) 1, Neutrophils (%) (Auto) 75, Lymphocytes (%) (Auto) 17, Monocytes (%) (Auto) 6, Eosinophils (%) (Auto) 2, Basophils (%) (Auto) 0, Neutrophils # (Auto) 11.4, Lymphocytes # (Auto) 2.6, Monocytes # (Auto) 0.9, Eosinophils # (Auto) 0.2, Basophils # (Auto) 0.1, Immature Granulocyte # (Auto) 0.1 Discharge Instructions to patient/family Please see electronic discharge instructions given to patient. Discharge Medications Reviewed and agree with Discharge Medication list on patient's Discharge Instruction sheet JAMIL BROWN MD Jun 23, 2022 07:27
[2022-06-23 08:05] VITALS: BP 123/74
[2022-06-23] MEDS: DOCUSATE SODIUM 100 MG (COLACE) CAP PO SCH (08:18)
--- NOTE | 2022-06-23 09:34 | Anesthesia-Regional Post-Op ---
Regional Patient Condition Mental Status: Alert, Oriented x3 Circulation: Same as Pre-Op Headache: Absent Sensation: Full Recovery Motor Block: Absent Post Op Complications Complications None Follow Up Care/Instructions Patient Instructions None needed. Anesthesia/Patient Condition Patient is doing well, no complaints, stable vital signs, no apparent adverse anesthesia problems. No complications reported per nursing. D/C home per [facility] Criteria: Yes KASSANDRA BATISTA CRNA Jun 23, 2022 09:34
[2022-06-23] MEDS ORDERED: TETANUS,DIPTH,PERTUSS P/F (BOOSTRIX) 0.5 ML VIAL IM ONE (10:13)
[2022-06-23] MEDS: WITCH HAZEL(TUCKS) 40 EA JAR TOP PRN (13:47)
[2022-06-23 16:15] VITALS: BP 123/74
== END 2022-06-23 16:15 | disposition home or self-care (01) | DRG 807 ==
LOC: WSo 18:11 → LDRP 18:12 → WSo 22:19 → LDRP 06-22 11:33
PROVIDERS: ADMIT Family Medicine; ATTEND Family Medicine
PROC: 10E0XZZ Delivery of Products of Conception, External Approach (ICD-10-PCS; principal; 2022-06-22)
PROC: 0W8NXZZ Division of Female Perineum, External Approach (ICD-10-PCS; 2022-06-22)
DX: O99.02 Anemia complicating childbirth (principal); Z37.0 Single live birth; D64.9 Anemia, unspecified; Z3A.39 39 weeks gestation of pregnancy; Z23 Encounter for immunization
CPT/HCPCS: 36415; 83033; 85025; 86780; 86850; 86900; 86901; 90715

== ENCOUNTER 2023-03-12 13:12 | Emergency (ER) | payer MEDICAID ==
[~2023-03-12] VITALS: Ht 152 cm; Wt 43.5 kg
[~2023-03-12 13:12] MED LIST changes: +DOCU100C37 PO; +IBUP-844 PO
[2023-03-12] MEDS ORDERED: METOCLOPRAMIDE INJ 10 MG/2 ML IVP ONE (13:30)
[2023-03-12] MEDS ORDERED: NS IV 1000 ML 1,000 ML IV STA (13:30)
[2023-03-12] MEDS ORDERED: METO-310 PO (13:35)
--- NOTE | 2023-03-12 13:36 | ED GI ---
General Chief Complaint: Abdominal/GI Problems Stated Complaint: FEVER/VOMITING/9 WEEKS Source of Information: Patient Exam Limitations: No Limitations (DIDIER RIOS) History of Present Illness Date Seen by Provider: Mar 12, 2023 Time Seen by Provider: 13:32 Initial Comments Patient is a 22-year-old female presents to ED for vomiting. She has been vomiting over the past 4 to 5 days. She reports 5-6 episodes usually worse in the morning. She believes she is around 9 weeks . Last menstrual cycle end of December. She is currently G2, P1. She denies of any abdominal pain, vaginal bleeding, pain with urination, fever, chills cough, runny nose or sore throat. She has talked to her primary care physician Dr. Brown regarding her and there was discussion about starting her on a nausea medication. She has not taken any medication for symptoms. Currently on prenatals. Patient denies fever, chills, bodies, headache, dizziness, sore throat, decreased urine output, vaginal bleeding, vaginal discharge, history of diabetes or hypertension. (DIDIER RIOS) Allergies and Home Medications Allergies Coded Allergies: IKERANo Known Allergies (Verified Allergy, Unknown, 12/14/06) Patient Home Medication List Home Medication List Reviewed: Yes (DIDIER RIOS) Docusate Sodium (Docusate Sodium) 100 Mg Capsule, 100 MG PO BID Prescribed by: JAMIL BROWN on 06/23/22 0721 Ibuprofen (Ibu) 600 Mg Tablet, 600 MG PO Q6H Prescribed by: JAMIL BROWN on 06/23/22 0721 Metoclopramide HCl (Reglan) 10 Mg Tablet, 10 MG PO Q6H Prescribed by: KHADRA ESPINOZA on 03/12/23 1335 Review of Systems Review of Systems Constitutional: No chills, No diaphoresis, No malaise, No weakness EENTM: No Double Vision, No Eye Pain Respiratory: Denies Cough, Denies Orthopnea Cardiovascular: Denies Chest Pain, Denies Edema Gastrointestinal: Denies Abdominal Pain, Denies Diarrhea; Nausea, Vomiting Genitourinary: Denies Burning, Denies Discharge, Denies Drainage, Denies Frequency Musculoskeletal: No back pain, No joint pain Skin: No change in color, No change in hair/nails (DIDIER RIOS) All Other Systems Reviewed Negative Unless Noted: Yes (DIDIER RIOS) Past Drcpxjp-Mvsinc-Odqhqa Hx Immunizations Up To Date Tetanus Booster (TDap): Less than 5yrs PED Vaccines UTD: Yes (DIDIER RIOS) Seasonal Allergies Seasonal Allergies: No (DIDIER RIOS) Past Medical History Surgeries: Yes (tissue removal behind ear, wart removal from head) Respiratory: No Cardiac: No Neurological: No Reproductive Disorders: No Sexually Transmitted Disease: No Genitourinary: No Gastrointestinal: No Musculoskeletal: No Endocrine: No HEENT: No Cancer: No Psychosocial: Yes ADD/ADHD, Depression Integumentary: No Blood Disorders: No (DIDIER RIOS) Family Medical History No Pertinent Family Hx (DIDIER RIOS) Physical Exam Vital Signs Vital Signs - First Documented 03/12/23 13:29 Temp 36.3 Pulse 94 Resp 20 B/P (MAP) 124/68 (86) Pulse Ox 98 O2 Delivery Room Air (VEA MAYA MD) Vital Signs Capillary Refill : (DIDIER RIOS) Height/Weight/BMI Height: 4'11.00" Weight: 90lbs. oz. 40.121280lx; 22.42 BMI Method:Stated General Appearance: WD/WN, no apparent distress HEENT: PERRL/EOMI, normal ENT inspection, TMs normal, pharynx normal Neck: non-tender, full range of motion, supple Respiratory: chest non-tender, lungs clear, normal breath sounds, no respiratory distress, no accessory muscle use Cardiovascular: regular rate, rhythm, no edema, no gallop, no JVD Gastrointestinal: normal bowel sounds, non tender, soft, no organomegaly Extremities: normal range of motion, non-tender, normal inspection, no pedal edema Back: normal inspection, no CVA tenderness Neurologic/Psychiatric: damper worker II-XII nml as tested, no motor/sensory deficits, alert, normal mood/affect, oriented x 3 Skin: normal color, warm/dry (DIDIER RIOS) Progress/Results/Core Measures Results/Orders Lab Results Laboratory Tests Test 03/12/23 13:35 03/12/23 13:45 Range/Units Urine Color YELLOW Urine Clarity TURBID Urine pH 6.0 5-9 Urine Specific [place] 1.025 H 1.016-1.022 Urine Protein TRACE NEGATIVE Urine Glucose (UA) NEGATIVE NEGATIVE Urine Ketones 1+ H NEGATIVE Urine Nitrite NEGATIVE NEGATIVE Urine Bilirubin 1+ H NEGATIVE Urine Urobilinogen 0.2 < = 1.0 MG/DL Urine Leukocyte Esterase NEGATIVE NEGATIVE Urine RBC (Auto) NEGATIVE NEGATIVE Urine RBC NONE /HPF Urine WBC 2-5 /HPF Urine Squamous Epithelial Cells 25-50 H /HPF Urine Crystals NONE /LPF Urine Bacteria MODERATE H /HPF Urine Casts NONE /LPF Urine Mucus MODERATE H /LPF Urine Culture Indicated YES Urine Test POSITIVE NEGATIVE White Blood Count 5.6 4.3-11.0 10^3/uL Red Blood Count 4.47 3.80-5.11 10^6/uL Hemoglobin 13.9 11.5-16.0 g/dL Hematocrit 41 35-52 % Mean Corpuscular Volume 92 80-99 fL Mean Corpuscular Hemoglobin 31 25-34 pg Mean Corpuscular Hemoglobin Concent 34 32-36 g/dL Red Cell Distribution Width 11.4 10.0-14.5 % Platelet Count 239 130-400 10^3/uL Mean Platelet Volume 9.5 9.0-12.2 fL Immature Granulocyte % (Auto) 0 % Neutrophils (%) (Auto) 62 42-75 % Lymphocytes (%) (Auto) 29 12-44 % Monocytes (%) (Auto) 7 0-12 % Eosinophils (%) (Auto) 1 0-10 % Basophils (%) (Auto) 0 0-10 % Neutrophils # (Auto) 3.5 1.8-7.8 10^3/uL Lymphocytes # (Auto) 1.6 1.0-4.0 10^3/uL Monocytes # (Auto) 0.4 0.0-1.0 10^3/uL Eosinophils # (Auto) 0.1 0.0-0.3 10^3/uL Basophils # (Auto) 0.0 0.0-0.1 10^3/uL Immature Granulocyte # (Auto) 0.0 0.0-0.1 10^3/uL Sodium Level 136 135-145 MMOL/L Potassium Level 3.9 3.6-5.0 MMOL/L Chloride Level 106 98-107 MMOL/L Carbon Dioxide Level 21 21-32 MMOL/L Anion Gap 9 5-14 MMOL/L Blood Urea Nitrogen 7 7-18 MG/DL Creatinine 0.65 0.60-1.30 MG/DL Estimat Glomerular Filtration Rate 128 BUN/Creatinine Ratio 11 Glucose Level 81 70-105 MG/DL Calcium Level 9.7 8.5-10.1 MG/DL Corrected Calcium 8.5-10.1 MG/DL Total Bilirubin 0.4 0.1-1.0 MG/DL Aspartate Amino Transf (AST/SGOT) 35 H 5-34 U/L Alanine Aminotransferase (ALT/SGPT) 23 0-55 U/L Alkaline Phosphatase 65 40-136 U/L Total Protein 7.7 6.4-8.2 GM/DL Albumin 4.7 H 3.2-4.5 GM/DL Human Chorionic Gonadotropin, Quant 93402 H <5 MIU/ML (EVA MAYA MD) Medications Given in ED Current Medications Medications Dose Ordered Sig/Helen Route Start Time Stop Time Status Last Admin Dose Admin Metoclopramide HCl 10 mg ONCE ONCE IVP 03/12/23 13:30 03/12/23 13:32 DC 03/12/23 13:43 10 MG (EVA MAYA MD) Vital Signs/I&O 03/12/23 03/12/23 13:29 14:40 Temp 36.3 Pulse 94 62 Resp 20 20 B/P (MAP) 124/68 (86) 100/55 Pulse Ox 98 99 O2 Delivery Room Air Room Air (EVA MAYA MD) Departure Communication (PCP) Patient is G2, P1 presents ED with vomiting. Vomiting over the past 4 to 5 days worse in the morning when she wakes up. She has had a positive test. She believes she is around 9 weeks . Last menstrual cycle towards the end of December. No current symptoms at this time. Vomiting 5-6 times a day. She denies of any current abdominal pain, vaginal bleeding, vaginal discharge, fever, chills, chest pain, shortness of breath. Vital signs stable. Urinalysis with CBC, CMP and a liter of fluid was started. She did receive a dose of Reg claudine. She denies having similar type symptoms during her first . Abdomen soft without any tenderness. Urinalysis without strong evidence of infection. Did note squamous cell and bacteria likely more contamination. Since she is not having any urinary symptoms we will wait to treat pending culture. No current vaginal bleeding. CBC, CMP grossly unremarkable. Positive . Beta quant 72,000. She is feeling much better at this time. She does not appear dry. She does not appear toxic. No evidence of surgical abdomen. No specific tenderness on exam. Recommend follow-up with your primary care physician in the next 1 to 2 days for reevaluation. If any worsening symptoms return back to ED. (DIDIER RIOS) Impression Primary Impression: Vomiting during Disposition: HOME, SELF-CARE Condition: Stable Departure-Patient Inst. Decision time for Depature: 13:34 (DIDIER RIOS) Referrals: JAMIL BROWN MD (PCP) Primary Care Physician NO,LOCAL PHYSICIAN (Family) Primary Care Physician Patient Instructions: Nausea and Vomiting of Add. Discharge Instructions: Take nausea medication as prescribed. Recommend prenatals. Follow-up your primary care physician for further evaluation. All discharge instructions reviewed with patient and/or family. Voiced understanding. Scripts Metoclopramide HCl (Reglan) 10 Mg Tablet 10 MG PO Q6H for Vomiting, #8 TAB Prov: DIDIER RIOS 03/12/23 ATTENDING PHYSICIAN NOTE: I was physically present in the ER as attending physician during the care of this patient. I did not personally interview or examine this patient, and I was not otherwise directly involved in the decision-making or delivery of care for this patient. (EVA MAYA MD) DIDIER RIOS Mar 12, 2023 13:36 EVA MAYA MD Mar 12, 2023 19:16
[2023-03-12 13:53] LABS: BASOPHILS % (AUTO) 0 % (0-10); EOSINOPHILS # (AUTO) 0.1 10^3/uL (0.0-0.3); EOSINOPHILS % (AUTO) 1 % (0-10); HEMATOCRIT 41 % (35-52); HEMOGLOBIN 13.9 g/dL (11.5-16.0); LYMPHOCYTES # (AUTO) 1.6 10^3/uL (1.0-4.0); LYMPHOCYTES % (AUTO) 29 % (12-44); MEAN CORPUSCULAR HEMOGLOBIN 31 pg (25-34); MEAN CORPUSCULAR HGB CONC 34 g/dL (32-36); MEAN CORPUSCULAR VOLUME 92 fL (80-99); MEAN PLATELET VOLUME 9.5 fL (9.0-12.2); MONOCYTES # (AUTO) 0.4 10^3/uL (0.0-1.0); MONOCYTES % (AUTO) 7 % (0-12); NEUTROPHILS # (AUTO) 3.5 10^3/uL (1.8-7.8); NEUTROPHILS % (AUTO) 62 % (42-75); PLATELET COUNT 239 10^3/uL (130-400); WHITE BLOOD COUNT 5.6 10^3/uL (4.3-11.0)
[2023-03-12 14:02] LABS: ALBUMIN 4.7 GM/DL (3.2-4.5); CHLORIDE 106 MMOL/L (98-107); POTASSIUM 3.9 MMOL/L (3.6-5.0); SODIUM 136 MMOL/L (135-145)
[2023-03-12 14:03] LABS: CALCIUM 9.7 MG/DL (8.5-10.1)
[2023-03-12 14:04] LABS: GLUCOSE 81 MG/DL (70-105)
[2023-03-12 14:05] LABS: TOTAL PROTEIN 7.7 GM/DL (6.4-8.2)
[2023-03-12 14:06] LABS: BILIRUBIN,TOTAL 0.4 MG/DL (0.1-1.0); CARBON DIOXIDE 21 MMOL/L (21-32)
[2023-03-12 14:08] LABS: ALKALINE PHOSPHATASE 65 U/L (40-136); CREATININE SERUM 0.65 MG/DL (0.60-1.30); GFR ESTIMATED 128
[2023-03-12 14:09] LABS: BUN/CREATININE RATIO 11
[2023-03-12 14:11] LABS: ALANINE AMINOTRANSFERASE 23 U/L (0-55)
[2023-03-12 14:30] LABS: CLARITY,URINE TURBID; COLOR,URINE YELLOW
[2023-03-12 14:31] LABS: BILIRUBIN,URINE 1+ (NEGATIVE); GLUCOSE, URINE (UA) NEGATIVE (NEGATIVE); KETONES,URINE 1+ (NEGATIVE); LEUKOCYTE ESTERASE ,URINE NEGATIVE (NEGATIVE); NITRITE,URINE NEGATIVE (NEGATIVE); PROTEIN,URINE TRACE (NEGATIVE)
[2023-03-12 14:32] LABS: BACTERIA,URINE MODERATE /HPF; SQUAMOUS EPITHELIAL CELL,UR 25-50 /HPF
[2023-03-12 14:40] VITALS: BP 100/55
== END 2023-03-12 14:41 | disposition home or self-care (01) ==
LOC: EDUNIT# 13:12 → ER 13:15
DX: O21.9 Vomiting of pregnancy, unspecified (principal); Z3A.09 9 weeks gestation of pregnancy
CPT/HCPCS: 36415; 80053; 81000; 84702; 84703; 85025; 87088; 96374

== ENCOUNTER → 2023-03-17 | Outpatient (CLI) | payer MEDICAID ==
[~2023-03-17] MED LIST changes: +METO-310 PO
--- NOTE | 2023-03-17 15:57 | Diagnostic Imaging Report ---
PROCEDURE: US OB SINGLE FETUS <14 WKS. TECHNIQUE: Multiple real-time grayscale images were obtained over the gravid uterus in various projections. INDICATION: dating. The uterus measures 9.0 x 6.5 x 8.9 cm. There is an intrauterine gestational sac containing a pole consistent with 8 weeks 5 days gestation. heart rate was recorded at 155 bpm. Gestational sac shape is within normal limits. No perigestational sac hemorrhage is detected. Both ovaries are unremarkable and contain small follicles. The cervical length is 3.8 cm. There is a small amount of free fluid in the pelvis. IMPRESSION: Single live IUP approximately 8 weeks 5 days gestational age with estimated date of confinement sonographically of 10/22/2023. Dictated by: Dictated on workstation # [id number]
== END ==
LOC: RAD 13:53
PROVIDERS: ATTEND Family Medicine
DX: Z36.87 Encounter for antenatal screening for uncertain dates (principal); Z3A.01 Less than 8 weeks gestation of pregnancy
CPT/HCPCS: 76801

== ENCOUNTER 2023-03-25 06:02 | Emergency (ER) | payer MEDICAID ==
[~2023-03-25] VITALS: Ht 150 cm; Wt 45.0 kg
[2023-03-25] MEDS ORDERED: ACETAMINOPHEN 325 MG TABLET PO STA (06:25)
[2023-03-25] MEDS ORDERED: ONDANSETRON 4 MG ORAL DISSOLVE TABLET SL STA (06:25)
--- NOTE | 2023-03-25 06:34 | ED Cough/URI ---
General Chief Complaint: Cough/Cold/Flu Symptoms Stated Complaint: 10 WKS PREG,NAUSEA,VOMITING,HANDLEY,CONGESTION Source: patient Exam Limitations: no limitations History of Present Illness Date Seen by Provider: Mar 25, 2023 Time Seen by Provider: 06:15 Initial Comments Here with nasal congestion, headache and nausea and vomiting. Patient is 10 weeks and typically has morning sickness each morning but today and the last 2 days she has had nasal congestion and headache. 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 She is vaccinated for flu and COVID. She does not believe she has had fevers. Denies significant sore throat. Denies cough, chest pain or breathing problems. She came today because she woke up with the headache and nasal congestion was concerned that she had a nose infection. She has not had anything for headache or nausea this morning. Timing/Duration: other (2 days ago) Severity/Quality: no cough Prior Episodes/Possible Cause: occasional episodes Associated Symptoms: headache, nasal congestion, nasal drainage Allergies and Home Medications Allergies Coded Allergies: NKANo Known Allergies (Verified Allergy, Unknown, 12/14/06) Patient Home Medication List Home Medication List Reviewed: Yes Docusate Sodium (Docusate Sodium) 100 Mg Capsule, 100 MG PO BID Prescribed by: JAMIL BROWN on 06/23/22 0721 Ibuprofen (Ibu) 600 Mg Tablet, 600 MG PO Q6H Prescribed by: JAMIL BROWN on 06/23/22 0721 Metoclopramide HCl (Reglan) 10 Mg Tablet, 10 MG PO Q6H Prescribed by: KHADRA ESPINOZA on 03/12/23 1335 Review of Systems Review of Systems Constitutional: see HPI; No chills, No fever EENTM: nose congestion; No throat pain Respiratory: No cough, No short of breath Cardiovascular: no symptoms reported Gastrointestinal: nausea, vomiting Genitourinary: No discharge, No dysuria : Yes Musculoskeletal: no symptoms reported Skin: no symptoms reported Past Uyzdaof-Vjnmvj-Qonllb Hx Patient Social History Tobacco Use?: No Use of E-Cig and/or Vaping dev: No Substance use?: No Immunizations Up To Date Tetanus Booster (TDap): Less than 5yrs PED Vaccines UTD: Yes Seasonal Allergies Seasonal Allergies: No Past Medical History Surgeries: Yes (tissue removal behind ear, wart removal from head) Respiratory: No Cardiac: No Neurological: No Reproductive Disorders: No Sexually Transmitted Disease: No Genitourinary: No Gastrointestinal: No Musculoskeletal: No Endocrine: No HEENT: No Cancer: No Psychosocial: Yes ADD/ADHD, Depression Integumentary: No Blood Disorders: No Family Medical History Reviewed Nursing Family Hx No Pertinent Family Hx Physical Exam Vital Signs - First Documented 03/25/23 06:15 Temp 36.0 Pulse 83 Resp 16 B/P (MAP) 119/64 (82) Capillary Refill : Height: 4'11.00" Weight: 90lbs. oz. 40.105456ls; 18.00 BMI Method:Stated General Appearance: WD/WN, no apparent distress HEENT: PERRL/EOMI, TMs normal, other (Moderate nasal congestion with clear rhinorrhea and moderate erythema) Neck: full range of motion, supple Respiratory: lungs clear, normal breath sounds Cardiovascular: regular rate, rhythm, no murmur Neurologic/Psychiatric: alert, oriented x 3 Skin: normal color, warm/dry Progress/Results/Core Measures Suspected Sepsis SIRS Temperature: Pulse: Respiratory Rate: Blood Pressure / Mean: Results/Orders Lab Results Laboratory Tests Test 03/25/23 06:15 Range/Units Influenza Type A (RT-PCR) Not Detected Not Detecte Influenza Type B (RT-PCR) Not Detected Not Detecte SARS-CoV-2 RNA (RT-PCR) Not Detected Not Detecte My Orders Orders - CAIO ROUSE MD Acetaminophen Tablet (Acetaminophen Ta (03/25/23 06:25) Ondansetron Oral Dissolve Tab (Ondanset (03/25/23 06:25) Influenza A And B By Pcr (03/25/23 06:25) Covid 19 Inhouse Test (03/25/23 06:25) Vital Signs/I&O 03/25/23 06:15 Temp 36.0 Pulse 83 Resp 16 B/P (MAP) 119/64 (82) Capillary Refill : Progress Note : Progress Note Seen and evaluated. 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 Tylenol 650 mg p.o. and ondansetron 4 mg p.o. ordered. We did discuss suxy-mda-caohibk therapy of Afrin nasal spray she did that after departure. She does have moderate nasal congestion and I think she will respond well with Afrin. I do not believe she has sinus infection yet as she is only 2 to 3 days into the illness and she has been afebrile without history of frequent or even occasional sinus infections. We will manage this as viral illness at this point. Monitor patient. Differential diagnosis includes COVID infection, influenza infection, other respiratory infection 0700: COVID and flu are negative. This was discussed with the patient. Discharged home with return precautions. Patient verbalized understanding of instructions and agreement with plan. Departure Impression Primary Impression: Upper respiratory infection Qualified Codes: J06.9 - Acute upper respiratory infection, unspecified Disposition: HOME, SELF-CARE Condition: Stable Departure-Patient Inst. Decision time for Depature: 07:00 Referrals: JAMIL BROWN MD (PCP/Family) Primary Care Physician Patient Instructions: Viral Upper Respiratory Infection, Adult (DC) Add. Discharge Instructions: All discharge instructions reviewed with patient and/or family. Voiced understanding. You may take Tylenol/acetaminophen 650 mg every 6 hours as needed for fever or pain. You may use Afrin nasal spray or the generic, 12 hour relief, 2 sprays to each nostril twice daily for 3 days only and then stop. Do not use more than 3 days. Follow-up with your Dr. in a few days for recheck. Drink plenty of fluids. Return for worse pain, fever, vomiting, weakness, breathing problems or other concerns as needed. Work/School Note: Work Release Form Date Seen in the Emergency Department: Mar 25, 2023 Return to Work: Mar 26, 2023 Restrictions: Return-No Fever (24hrs) Copy Copies To 1: JAMIL BROWN MD, TIMOTHY D MD Mar 25, 2023 06:34
[2023-03-25 07:12] VITALS: BP 119/64
== END 2023-03-25 07:11 | disposition home or self-care (01) ==
LOC: EDUNIT# 06:02 → ER 06:05
DX: O99.511 Diseases of the respiratory system complicating pregnancy, first trimester (principal); J06.9 Acute upper respiratory infection, unspecified; O21.9 Vomiting of pregnancy, unspecified; Z3A.10 10 weeks gestation of pregnancy
CPT/HCPCS: 87636; 99283